=== PATIENT | male | born 1970 | race Caucasian/White ===

== ENCOUNTER 2017-02-17 23:02 | Emergency (ER) | payer OTHER, MEDICAID ==
[~2017-02-17] VITALS: Ht 172.7 cm; Wt 59.0 kg
[~2017-02-17 23:02] MED LIST: CITA20 PO; HYDR-3534 PO; ZYPR5TAB PO
[2017-02-17 23:04] VITALS: BP 136/94; PULSE 88; RESP 16; TEMP 97.5; O2SAT 98
[2017-02-17] MEDS ORDERED: ZYPR5TAB PO (23:22)
[2017-02-17] MEDS ORDERED: CITA10TA4 PO (23:22)
--- NOTE | 2017-02-17 23:43 | PD ---
HPI Chief Complaint: Psychiatric Symptoms Time Seen by Provider: 23:25 Travel History International Travel<30 days: No Contact w/Intl Traveler<30days: No Traveled to known affect area: No History of Present Illness HPI Supple 46 old man who presents to the emergency department complaining "I came in for detox". He also endorses active suicidal ideations. He has a history of IV heroin use, as well as regular alcohol use. He last used today. He states been having increased suicidal thoughts over the past 4 days. Plans on overdosing. His a history of PTSD with psychosis, reports being treated here before. Denies any other recent illness or injury. No somatic complaints at this time. History Past Medical History Narrative Medical PTSD, psychosis IVDU Chronic back pain Past Surgical History Surgical History: No Previous Surgery Social History Alcohol Use: Yes (DAILY) Tobacco Use: Yes (1/2PPD) Allergies-Medications (Allergen,Severity, Reaction): Coded Allergies: Penicillin (Verified Allergy, Severe, THROAT CLOSES, 02/17/17) Reported Meds & Prescriptions Reported Meds & Active Scripts Active Reported Citalopram (Citalopram Hydrobromide) 10 Mg Tab 10 Mg PO DAILY Zyprexa (Olanzapine) 5 Mg Tab 5 Mg PO DAILY Review of Systems Except as stated in HPI: all other systems reviewed are Neg Physical Exam Narrative GENERAL: 46 old man, saw him, no acute distress. SKIN: Focused skin assessment warm/dry. HEAD: Atraumatic. Normocephalic. CARDIOVASCULAR: Regular rate and rhythm. No murmur appreciated. RESPIRATORY: No accessory muscle use. Clear to auscultation. Breath sounds equal bilaterally. GASTROINTESTINAL: Abdomen soft, non-tender, nondistended. Hepatic and splenic margins not palpable. MUSCULOSKELETAL: No obvious deformities. No clubbing. No cyanosis. No edema. NEUROLOGICAL: Awake and alert. No obvious cranial nerve deficits. Motor grossly within normal limits. Normal speech. PSYCHIATRIC: Flat affect. He endorses SI. Data Data Last Documented VS Vital Signs Date Time Temp Pulse Resp B/P Pulse Ox O2 Delivery O2 Flow Rate FiO2 02/17/17 23:04 97.5 88 16 136/94 98 Room Air Orders Complete Blood Count With Diff (02/17/17 23:32) Comprehensive Metabolic Panel (02/17/17 23:32) Psych Screen (02/17/17 23:32) Drug Screen, Random Urine (02/17/17 23:32) MDM Medical Decision Making Medical Screen Exam Complete: Yes Emergency Medical Condition: Yes Differential Diagnosis Depression, substance induced mood disorder, SI, other Narrative Course Medical decision making INITIAL: 46 old man with IV drug use and alcohol use presents with suicidality and desire for detox. We'll be voluntary for psychiatric evaluation. He has no somatic complaints. Patient medically clear for psychiatric evaluation. Mental health screening discussed with the patient. Psychiatric screen ordered. Dale Osborn MD Feb 17, 2017 23:43
[2017-02-18 00:07] LABS: AUTOMATED NEUTROPHIL # 7.4 TH/MM3 (1.8-7.7); BASOPHIL # 0.1 TH/MM3 (0-0.2); EOSINOPHIL # 0.1 TH/MM3 (0-0.4); EOSINOPHIL % 0.6 % (0.0-4.0); LYMPH % 18.2 % (9.0-44.0); LYMPHOCYTE # 1.8 TH/MM3 (1.0-4.8); MEAN CELL VOLUME 92.2 FL (80.0-100.0); MEAN CORPUSCULAR HEMOGLOBIN 31.6 PG (27.0-34.0); MEAN CORPUSCULAR HGB CONC 34.3 % (32.0-36.0); MONO % 3.8 % (0.0-8.0); NEUT % 76.4 % (16.0-70.0); PLATELET COUNT 247 TH/MM3 (150-450); RED BLOOD COUNT 4.77 MIL/MM3 (4.50-5.90); WHITE BLOOD COUNT 9.6 TH/MM3 (4.0-11.0)
[2017-02-18 00:08] LABS: HEMO FLAGS AUTO DIFF
[2017-02-18 00:32] LABS: ALKALINE PHOSPHATASE 104 U/L (45-117); ALT (GPT) 102 U/L (12-78); ANION GAP 8 MEQ/L (5-15); AST (GOT) 64 U/L (15-37); BICARBONATE 30.1 MEQ/L (21.0-32.0); BLOOD UREA NITROGEN 8 MG/DL (7-18); CHLORIDE 102 MEQ/L (98-107); GLOMERULAR FILTRATION RATE 66 ML/MIN (>89); POTASSIUM 3.4 MEQ/L (3.5-5.1); SODIUM (NA) 140 MEQ/L (136-145); TOTAL BILIRUBIN ADULT 0.6 MG/DL (0.2-1.0)
[2017-02-18 00:43] LABS: PLATELET ESTIMATE SMEAR NORMAL (NORMAL); PLATELET MORPHOLOGY NORMAL (NORMAL); SCAN/DIFF AUTO DIFF CONFIRMED
[2017-02-18 07:20] VITALS: BP 121/71; PULSE 64; RESP 18; O2SAT 95
[2017-02-18] MEDS ORDERED: LIDOCAINE VISCOUS 2% SOLN 15 ML UDC PO ONE (07:45)
[2017-02-18] MEDS ORDERED: ALUMINUM/MAGNESIUM/SIMETH 30 ML CUP PO ONE (07:45)
[2017-02-18] MEDS ORDERED: DICYCLOMINE HCL 10 MG CAP PO ONE (07:45)
[2017-02-18] MEDS ORDERED: ONDANSETRON HCL 4 MG/2 ML VIAL IVP ONE (07:45)
[2017-02-18 07:57] LABS: AMPHETAMINE, URINE NEG (NEG); BARBITURATES, URINE NEG (NEG); COCAINE, URINE POS (NEG)
== END 2017-02-18 11:12 ==
LOC: NEPC 23:02
DX: F29 Unspecified psychosis not due to a substance or known physiological condition (principal); F17.210 Nicotine dependence, cigarettes, uncomplicated; F43.10 Post-traumatic stress disorder, unspecified; F10.20 Alcohol dependence, uncomplicated; F11.20 Opioid dependence, uncomplicated; Y90.9 Presence of alcohol in blood, level not specified; R45.851 Suicidal ideations
CPT/HCPCS: 80053; 80307; 85025; 96374; 99285; J2405

== ENCOUNTER 2017-04-21 15:33 | Emergency (ER) | payer OTHER ==
[~2017-04-21] VITALS: Ht 175.3 cm; Wt 66.0 kg
[~2017-04-21 15:33] MED LIST changes: +CITA10TA4 PO; -CITA20 PO; -HYDR-3534 PO
[2017-04-21 15:36] VITALS: BP 138/86; PULSE 62; RESP 17; TEMP 97.8; O2SAT 97
--- NOTE | 2017-04-21 16:19 | PD ---
HPI . Suicidal ideation and wanting detox Chief Complaint: Psychiatric Symptoms Time Seen by Provider: 16:19 Travel History International Travel<30 days: No Contact w/Intl Traveler<30days: No Traveled to known affect area: No History of Present Illness HPI 46-year-old male with long-standing history of IV drug use with heroin since age 27 here requesting detox. Patient tells me that he had previously been clean for approximately 2 weeks and then relapsed. He has been using heroin heavily for the past 3 days and tells me that he considered suicide by either shooting himself or jumping out into traffic. He says the only reason he did not move forward with his plan is because he doesn't think his would be able to handle his . He is here now requesting treatment for heroin addiction. He requests transfer to "[facility]." He also complains of a diffuse rash on his body for the past several days. He tells me that it does not itch or cause any discomfort, but he just noticed it. He thinks that it pops up in areas that he's been injecting IV drugs. He denies any fever or chills. He has no other complaints. PFSH Past Medical History Asthma: Yes Anxiety: Yes Depression: Yes Cancer: No Diabetes: No Diminished Hearing: No Headaches: No Hepatitis: Yes (HEP C) Musculoskeletal: Yes (CHRONIC BACK PAIN (PAIN MANAGEMENT)) Psychiatric: Yes (PTSD) Seizures: No Social History Alcohol Use: Yes (DAILY) Tobacco Use: Yes (1/2PPD) Substance Use: Yes (heroin, cocaine) Allergies-Medications (Allergen,Severity, Reaction): Coded Allergies: Penicillin (Verified Allergy, Severe, THROAT CLOSES, 04/21/17) Reported Meds & Prescriptions Reported Meds & Active Scripts Active Prednisone 50 Mg Tab 50 Mg PO DAILY Reported Citalopram (Citalopram Hydrobromide) 10 Mg Tab 10 Mg PO DAILY Zyprexa (Olanzapine) 5 Mg Tab 5 Mg PO DAILY Review of Systems General / Constitutional: No: Fever Eyes: No: Visual changes HENT: No: Headaches Cardiovascular: No: Chest Pain or Discomfort Respiratory: No: Shortness of Breath Gastrointestinal: No: Abdominal Pain Genitourinary: No: Dysuria Musculoskeletal: No: Pain Skin: Positive Rash Neurologic: No: Weakness Psychiatric: No: Depression Endocrine: No: Polydipsia Hematologic/Lymphatic: No: Easy Bruising Physical Exam Narrative GENERAL: AAO x 3, no acute distress, Well-nourished, well-developed patient. SKIN: Warm and dry. No visible bruising. The [place] macules scattered without any distinct distribution over the entire lower extremities primarily on the left leg, scattered lesions on the bilateral hands, slight excoriation on the hands. No visible widespread erythema, edema or cellulitis appearance. Skin temperature is consistent throughout upper and lower extremities. No ecchymosis. No blisters or pustules. NO fluid collection. HEAD: Normocephalic and atraumatic. EYES: No scleral icterus. No injection or drainage. EOM intact, PERRLA ENT: No nasal drainage noted. Mucous membranes pink. Airway patent. NECK: Supple, trachea midline. No JVD. CARDIOVASCULAR: Regular rate and rhythm without murmurs, gallops, or rubs. RESPIRATORY: Breath sounds equal bilaterally. No accessory muscle use. No rhonchi or rales. GASTROINTESTINAL: Abdomen soft, non-tender, nondistended. EXTREMITIES: No cyanosis or edema. BACK: Nontender without obvious deformity. No CVA tenderness. NEURO: CN II-12 intact, primary care pediatrician stenght normal b/l, UE and LE 5/5, no focal deficits PSYCH: AAO x 3, normal affect. Data Data Last Documented VS Vital Signs Date Time Temp Pulse Resp B/P Pulse Ox O2 Delivery O2 Flow Rate FiO2 04/21/17 15:36 97.8 62 17 138/86 97 Room Air Orders Complete Blood Count With Diff (04/21/17 16:24) Comprehensive Metabolic Panel (04/21/17 16:24) Psych Screen (04/21/17 16:24) Drug Screen, Random Urine (04/21/17 16:24) Alcohol (Ethanol) (04/21/17 16:24) Salicylates (Aspirin) (04/21/17 16:24) Tylenol (Acetaminophen) (04/21/17 16:24) Labs Laboratory Tests Test 04/21/17 16:50 White Blood Count 8.7 TH/MM3 Red Blood Count 4.60 MIL/MM3 Hemoglobin 14.3 GM/DL Hematocrit 43.0 % Mean Corpuscular Volume 93.6 FL Mean Corpuscular Hemoglobin 31.1 PG Mean Corpuscular Hemoglobin 33.3 % Concent Red Cell Distribution Width 13.7 % Platelet Count 233 TH/MM3 Mean Platelet Volume 8.1 FL Neutrophils (%) (Auto) 66.6 % Lymphocytes (%) (Auto) 25.5 % Monocytes (%) (Auto) 5.7 % Eosinophils (%) (Auto) 1.1 % Basophils (%) (Auto) 1.1 % Neutrophils # (Auto) 5.8 TH/MM3 Lymphocytes # (Auto) 2.2 TH/MM3 Monocytes # (Auto) 0.5 TH/MM3 Eosinophils # (Auto) 0.1 TH/MM3 Basophils # (Auto) 0.1 TH/MM3 CBC Comment DIFF FINAL Differential Comment Sodium Level 136 MEQ/L Potassium Level 3.8 MEQ/L Chloride Level 102 MEQ/L Carbon Dioxide Level 25.8 MEQ/L Anion Gap 8 MEQ/L Blood Urea Nitrogen 8 MG/DL Creatinine 0.94 MG/DL Estimat Glomerular Filtration 87 ML/MIN Rate Random Glucose 70 MG/DL Calcium Level 9.0 MG/DL Total Bilirubin 0.6 MG/DL Aspartate Amino Transf 58 U/L (AST/SGOT) Alanine Aminotransferase 90 U/L (ALT/SGPT) Alkaline Phosphatase 101 U/L Total Protein 7.3 GM/DL Albumin 3.8 GM/DL Salicylates Level 3.8 MG/DL Acetaminophen Level LESS THAN 2.0 MCG/ML Ethyl Alcohol Level LESS THAN 3 MG/DL MDM Medical Decision Making Medical Screen Exam Complete: Yes Emergency Medical Condition: Yes Medical Record Reviewed: Yes Differential Diagnosis Heroin addiction, polysubstance abuse, depression, suicidal ideation Narrative Course This is a 46-year-old male presenting with heroin addiction requesting detox as well as suicidal ideation. He also has a slight macular rash scattered in various areas in his body. This may be related to him injecting drugs in this area, however it the distribution is a little more widespread than expected. There is no abscess formation or evidence of cellulitis. Labs have been ordered. If they're within normal limits, patient will be cleared for psych screen. This rash does not appear to be any type of widespread infection. It does not appear to be cellulitis. This looks like a contact dermatitis. I will provide him with some prednisone. Labs reviewed patient has slight elevation of LFTs. Otherwise unremarkable. He has been cleared for psych screen. Diagnosis Primary Impression: Suicidal ideation Additional Impressions: Heroin dependence Contact dermatitis Qualified Code: L25.9 - Contact dermatitis, unspecified contact dermatitis type, unspecified trigger Med/Other Pt SpecificInfo: Prescription(s) given Scripts Prednisone 50 Mg Tab50 Mg PO DAILY #5 TAB Prov:Jina De Los Santos MD 04/21/17 Condition: Stable Della Stevens Apr 21, 2017 16:19
[2017-04-21 17:21] LABS: AUTOMATED NEUTROPHIL # 5.8 TH/MM3 (1.8-7.7); BASOPHIL # 0.1 TH/MM3 (0-0.2); BASOPHIL % 1.1 % (0.0-2.0); EOSINOPHIL # 0.1 TH/MM3 (0-0.4); EOSINOPHIL % 1.1 % (0.0-4.0); HEMO FLAGS DIFF FINAL; LYMPH % 25.5 % (9.0-44.0); LYMPHOCYTE # 2.2 TH/MM3 (1.0-4.8); MEAN CELL VOLUME 93.6 FL (80.0-100.0); MEAN CORPUSCULAR HEMOGLOBIN 31.1 PG (27.0-34.0); MEAN CORPUSCULAR HGB CONC 33.3 % (32.0-36.0); MONO % 5.7 % (0.0-8.0); NEUT % 66.6 % (16.0-70.0); PLATELET COUNT 233 TH/MM3 (150-450); RED CELL DISTRIBUTION WIDTH 13.7 % (11.6-17.2); WHITE BLOOD COUNT 8.7 TH/MM3 (4.0-11.0)
[2017-04-21 17:48] LABS: ALT (GPT) 90 U/L (12-78)
[2017-04-21 17:50] LABS: ALKALINE PHOSPHATASE 101 U/L (45-117); TOTAL BILIRUBIN ADULT 0.6 MG/DL (0.2-1.0)
[2017-04-21 17:52] LABS: ANION GAP 8 MEQ/L (5-15); AST (GOT) 58 U/L (15-37); BICARBONATE 25.8 MEQ/L (21.0-32.0); BLOOD UREA NITROGEN 8 MG/DL (7-18); CHLORIDE 102 MEQ/L (98-107); GLOMERULAR FILTRATION RATE 87 ML/MIN (>89); SODIUM (NA) 136 MEQ/L (136-145)
[2017-04-21 17:55] LABS: ACETAMINOPHEN LESS THAN 2.0 MCG/ML (10.0-30.0); POTASSIUM 3.8 MEQ/L (3.5-5.1)
[2017-04-21] MEDS ORDERED: PRED50 PO (18:18)
[2017-04-21 20:07] VITALS: BP 136/65; PULSE 68; RESP 16; TEMP 98.9; O2SAT 98
[2017-04-21 23:10] VITALS: BP 141/63; PULSE 71; RESP 16; O2SAT 97
[2017-04-21 23:37] LABS: AMPHETAMINE, URINE NEG (NEG); BARBITURATES, URINE NEG (NEG); COCAINE, URINE POS (NEG)
[2017-04-22 08:50] VITALS: BP 118/82; PULSE 81; RESP 16; O2SAT 100
[2017-04-22 11:46] VITALS: BP 110/56; PULSE 81; RESP 20; TEMP 98.6; O2SAT 99
[2017-04-22 14:06] VITALS: BP 110/56; TEMP 98.7
== END 2017-04-22 13:14 ==
LOC: NEPD 15:33 → NEPJ 04-22 13:14
DX: R45.851 Suicidal ideations (principal); F11.20 Opioid dependence, uncomplicated; L25.9 Unspecified contact dermatitis, unspecified cause; B19.20 Unspecified viral hepatitis C without hepatic coma; F43.10 Post-traumatic stress disorder, unspecified; Z79.899 Other long term (current) drug therapy
CPT/HCPCS: 80053; 80307; 85025; 99284

== ENCOUNTER 2017-10-03 20:58 | Emergency (ER) | payer OTHER, MEDICAID ==
[~2017-10-03 20:58] MED LIST changes: +PRED50 PO
[2017-10-03 21:01] VITALS: BP 142/96; PULSE 120; RESP 16; TEMP 97; O2SAT 97
[2017-10-03] MEDS ORDERED: SODIUM CHLOR 0.9% 1000 ML INJ 1,000 ML IV ONE (21:45)
--- NOTE | 2017-10-03 21:46 | PD ---
HPI Chief Complaint: Psychiatric Symptoms Time Seen by Provider: 21:30 Travel History International Travel<30 days: No Contact w/Intl Traveler<30days: No Traveled to known affect area: No History of Present Illness HPI 47-year-old male with history of bipolar disorder, depression, polysubstance abuse, here for evaluation of suicidal ideation. The patient admits to snorting cocaine today, and every day for the last week. He last used heroin about 4 days ago. He is feeling increasingly depressed and is thinking about committing suicide. He did not do anything today to harm himself. No toxic ingestions. No fevers or chills. No physical complaints. PFSH Past Medical History Asthma: Yes Anxiety: Yes Depression: Yes Cancer: No Diabetes: No Diminished Hearing: No Headaches: No Hepatitis: Yes (HEP C) Musculoskeletal: Yes (CHRONIC BACK PAIN (PAIN MANAGEMENT)) Psychiatric: Yes (PTSD) Immunizations Current: No Seizures: Yes Social History Alcohol Use: Yes (DAILY) Tobacco Use: Yes (1 PPD) Substance Use: Yes (HEROIN, COCAINE) Allergies-Medications (Allergen,Severity, Reaction): Coded Allergies: penicillin G (Unverified Allergy, Severe, THROAT CLOSES, 10/03/17) Reported Meds & Prescriptions Reported Meds & Active Scripts Active Reported Citalopram (Citalopram Hydrobromide) 10 Mg Tab 10 Mg PO DAILY Zyprexa (Olanzapine) 5 Mg Tab 5 Mg PO DAILY Review of Systems Except as stated in HPI: all other systems reviewed are Neg Physical Exam Narrative GENERAL: Well-developed, well-nourished, awake, alert, pleasant, no apparent distress. SKIN: Focused skin assessment warm/dry. No rash. HEAD: Atraumatic. Normocephalic. EYES: Pupils equal and round. No scleral icterus. No injection or drainage. ENT: Mucous membranes pink and moist. NECK: Trachea midline. No JVD. CARDIOVASCULAR: Tachycardic, rate 110, regular. No murmurs. RESPIRATORY: No accessory muscle use. Clear to auscultation. Breath sounds equal bilaterally. GASTROINTESTINAL: Abdomen soft, non-tender, nondistended. MUSCULOSKELETAL: No obvious deformities. No clubbing. No cyanosis. No edema. NEUROLOGICAL: Awake and alert. No obvious cranial nerve deficits. Motor grossly within normal limits. Normal speech. PSYCHIATRIC: Appropriate mood and affect; insight and judgment normal. Data Data Last Documented VS Vital Signs Date Time Temp Pulse Resp B/P (MAP) Pulse Ox O2 Delivery O2 Flow Rate FiO2 10/03/17 22:39 98.0 76 16 116/80 (92) 100 Room Air Orders Orders Complete Blood Count With Diff (10/03/17 21:31) Comprehensive Metabolic Panel (10/03/17 21:31) Psych Screen (10/03/17 21:31) Drug Screen, Random Urine (10/03/17 21:31) Alcohol (Ethanol) (10/03/17 21:31) Salicylates (Aspirin) (10/03/17 21:31) Tylenol (Acetaminophen) (10/03/17 21:31) Sodium Chlor 0.9% 1000 Ml Inj (Ns 1000 M (10/03/17 21:45) Creatine Kinase (Cpk) (10/03/17 21:45) Potassium Chloride (Kcl) (10/03/17 23:30) Labs Laboratory Tests Test 10/03/17 21:25 White Blood Count 13.0 TH/MM3 Red Blood Count 4.55 MIL/MM3 Hemoglobin 14.7 GM/DL Hematocrit 43.0 % Mean Corpuscular Volume 94.5 FL Mean Corpuscular Hemoglobin 32.3 PG Mean Corpuscular Hemoglobin Concent 34.2 % Red Cell Distribution Width 13.2 % Platelet Count 280 TH/MM3 Mean Platelet Volume 8.9 FL Neutrophils (%) (Auto) 72.1 % Lymphocytes (%) (Auto) 21.7 % Monocytes (%) (Auto) 5.3 % Eosinophils (%) (Auto) 0.3 % Basophils (%) (Auto) 0.6 % Neutrophils # (Auto) 9.4 TH/MM3 Lymphocytes # (Auto) 2.8 TH/MM3 Monocytes # (Auto) 0.7 TH/MM3 Eosinophils # (Auto) 0.0 TH/MM3 Basophils # (Auto) 0.1 TH/MM3 CBC Comment DIFF FINAL Differential Comment Blood Urea Nitrogen 13 MG/DL Creatinine 1.13 MG/DL Random Glucose 142 MG/DL Total Protein 7.9 GM/DL Albumin 4.1 GM/DL Calcium Level 9.5 MG/DL Alkaline Phosphatase 77 U/L Aspartate Amino Transf (AST/SGOT) 21 U/L Alanine Aminotransferase (ALT/SGPT) 32 U/L Total Bilirubin 0.6 MG/DL Sodium Level 138 MEQ/L Potassium Level 3.2 MEQ/L Chloride Level 102 MEQ/L Carbon Dioxide Level 26.3 MEQ/L Anion Gap 10 MEQ/L Estimat Glomerular Filtration Rate 70 ML/MIN Total Creatine Kinase 114 U/L Salicylates Level 3.4 MG/DL Urine Opiates Screen NEG Acetaminophen Level LESS THAN 2.0 MCG/ML Urine Barbiturates Screen NEG Urine Amphetamines Screen NEG Urine Benzodiazepines Screen NEG Urine Cocaine Screen POS Urine Cannabinoids Screen NEG Ethyl Alcohol Level LESS THAN 3 MG/DL MDM Medical Decision Making Medical Screen Exam Complete: Yes Emergency Medical Condition: Yes Medical Record Reviewed: Yes Differential Diagnosis Polysubstance abuse, suicidal ideation, depression Narrative Course Vital signs show heart rate 76, blood pressure 116/80, pulse ox 100% on room air , oral temp of 98F. CBC: WBC 13, hemoglobin 14.7, hematocrit 43, platelets 280. CMP is remarkable for random glucose 142, potassium 3.2 which was replaced orally, otherwise unremarkable. Total CK is 114. Urine drug screen is positive for cocaine. Tylenol, alcohol, and salicylate levels are negative. Patient is medically cleared for psychiatric evaluation and disposition by them. 11:20 PM: Patient requested to be transferred to the [facility] for dual treatment for polysubstance abuse and depression/suicidal. My nurse contacted them and they have accepted him to be transported there in the morning. Diagnosis Primary Impression: Bipolar disorder, now depressed Qualified Codes: F31.30 - Bipolar disorder, current episode depressed, mild or moderate severity, unspecified Additional Impressions: Polysubstance abuse Hypokalemia Disposition: 70 TRANSFER TO OTHER FACILITY Condition: Stable Nolan Ontiveros MD Oct 03, 2017 21:46
[2017-10-03 22:14] LABS: AUTOMATED NEUTROPHIL # 9.4 TH/MM3 (1.8-7.7); BASOPHIL # 0.1 TH/MM3 (0-0.2); BASOPHIL % 0.6 % (0.0-2.0); EOSINOPHIL % 0.3 % (0.0-4.0); HEMO FLAGS DIFF FINAL; LYMPH % 21.7 % (9.0-44.0); LYMPHOCYTE # 2.8 TH/MM3 (1.0-4.8); MEAN CELL VOLUME 94.5 FL (80.0-100.0); MEAN CORPUSCULAR HEMOGLOBIN 32.3 PG (27.0-34.0); MEAN CORPUSCULAR HGB CONC 34.2 % (32.0-36.0); MONO % 5.3 % (0.0-8.0); NEUT % 72.1 % (16.0-70.0); PLATELET COUNT 280 TH/MM3 (150-450); RED BLOOD COUNT 4.55 MIL/MM3 (4.50-5.90); RED CELL DISTRIBUTION WIDTH 13.2 % (11.6-17.2)
[2017-10-03 22:16] LABS: ANION GAP 10 MEQ/L (5-15); AST (GOT) 21 U/L (15-37); BICARBONATE 26.3 MEQ/L (21.0-32.0); BLOOD UREA NITROGEN 13 MG/DL (7-18); CHLORIDE 102 MEQ/L (98-107); GLOMERULAR FILTRATION RATE 70 ML/MIN (>89); POTASSIUM 3.2 MEQ/L (3.5-5.1); SODIUM (NA) 138 MEQ/L (136-145)
[2017-10-03 22:17] LABS: ALT (GPT) 32 U/L (12-78)
[2017-10-03 22:19] LABS: ALCOHOL LESS THAN 3 MG/DL (0-5)
[2017-10-03 22:20] LABS: ALKALINE PHOSPHATASE 77 U/L (45-117); TOTAL BILIRUBIN ADULT 0.6 MG/DL (0.2-1.0)
[2017-10-03 22:27] LABS: ACETAMINOPHEN LESS THAN 2.0 MCG/ML (10.0-30.0)
[2017-10-03 22:39] VITALS: BP 116/80; PULSE 76; RESP 16; TEMP 98; O2SAT 100
[2017-10-03] MEDS ORDERED: POTASSIUM CHLORIDE 20 MEQ CONTROLLED RELEASE TAB PO ONE (23:30)
== END 2017-10-04 07:37 | disposition short-term general hospital (02) ==
LOC: NEPD 20:58
DX: F31.9 Bipolar disorder, unspecified (principal); F19.10 Other psychoactive substance abuse, uncomplicated; E87.6 Hypokalemia; R00.0 Tachycardia, unspecified; F17.200 Nicotine dependence, unspecified, uncomplicated; J45.909 Unspecified asthma, uncomplicated; F43.10 Post-traumatic stress disorder, unspecified; R56.9 Unspecified convulsions; Z86.19 Personal history of other infectious and parasitic diseases
CPT/HCPCS: 80053; 80307; 82550; 85025; 96360; 99285; J7030

== ENCOUNTER 2017-11-12 13:55 | Inpatient (IN) | payer OTHER, MEDICAID, MEDICARE ==
[~2017-11-12] VITALS: Ht 172.7 cm; Wt 61.0 kg
[~2017-11-12 13:55] MED LIST changes: -PRED50 PO
[2017-11-12 13:56] VITALS: BP 115/79; PULSE 113; RESP 20; TEMP 98.4; O2SAT 95
[2017-11-12] MEDS ORDERED: TRAZ100T10 PO (14:29)
[2017-11-12] MEDS ORDERED: CITA40TA4 PO (14:29)
[2017-11-12] MEDS ORDERED: GABA600T PO (14:29)
--- NOTE | 2017-11-12 14:36 | PD ---
HPI Chief Complaint: Suicide Ideation/Attempt Time Seen by Provider: 14:11 Travel History International Travel<30 days: No Contact w/Intl Traveler<30days: No Traveled to known affect area: No History of Present Illness HPI 47-year-old male with history of polysubstance abuse resents to the emergency department for voluntary psychiatric evaluation for suicidal ideation. Patient has a history of attempted suicide in the past. Patient states he has a plan of pain himself. He states he has used cocaine in the recent past. He has history of chronic liver disease, currently not being treated. The patient states she has had a couple of days of dysuria but denies nausea, vomiting, or significant abdominal pain. He denies penile discharge. He denies testicular pain. He is allergic to penicillin. PFSH Past Medical History Asthma: Yes Bipolar Disorder: Yes Anxiety: Yes Depression: Yes Cancer: No Diabetes: No Diminished Hearing: No Headaches: No Hepatitis: Yes (HEP C) Musculoskeletal: Yes (CHRONIC BACK PAIN (PAIN MANAGEMENT)) Psychiatric: Yes (PTSD) Immunizations Current: No Seizures: Yes Social History Alcohol Use: Yes (6-12 beers daily) Tobacco Use: Yes (1 PPD) Substance Use: Yes (HEROIN AND COCAINE BY INJECTION) Allergies-Medications (Allergen,Severity, Reaction): Coded Allergies: penicillin G (Unverified Allergy, Severe, THROAT CLOSES, 11/12/17) Reported Meds & Prescriptions Reported Meds & Active Scripts Active Reported Trazodone (Trazodone HCl) 100 Mg Tablet 100 Mg PO HS Gabapentin 600 Mg Tab 600 Mg PO TID Citalopram (Citalopram Hydrobromide) 40 Mg Tab 40 Mg PO DAILY Zyprexa (Olanzapine) 5 Mg Tab 5 Mg PO DAILY Review of Systems Except as stated in HPI: all other systems reviewed are Neg General / Constitutional: No: Fever Eyes: No: Visual changes HENT: No: Headaches Cardiovascular: No: Chest Pain or Discomfort Respiratory: No: Shortness of Breath Gastrointestinal: No: Abdominal Pain Genitourinary: Positive: Dysuria, No: Urgency, Frequency, Nocturia, Hematuria Musculoskeletal: No: Pain Skin: No Rash Neurologic: No: Weakness Psychiatric: Positive: Depression, Suicidal Ideations, Substance Abuse, No: Anxiety, Disorder of Thought, Mood Disorder, Homicidal Ideation Endocrine: No: Polydipsia Hematologic/Lymphatic: No: Easy Bruising Physical Exam Narrative GENERAL: Patient appears in no obvious distress. SKIN: Warm and dry. Normal color. Normal turgor. No current signs of infection. HEAD: Atraumatic. Normocephalic. EYES: Pupils equal and round. No scleral icterus. No injection or drainage. ENT: No nasal bleeding or discharge. Mucous membranes pink and moist. Pharynx is clear. Airway is patent. NECK: Trachea midline. Supple and nontender. CARDIOVASCULAR: Regular rate and rhythm. RESPIRATORY: No accessory muscle use. Clear to auscultation. Breath sounds equal bilaterally. GASTROINTESTINAL: Abdomen soft, non-tender, nondistended. Hepatic and splenic margins not palpable. MUSCULOSKELETAL: Extremities without clubbing, cyanosis, or edema. No obvious deformities. NEUROLOGICAL: Awake and alert. No obvious cranial nerve deficits. Motor grossly within normal limits. Five out of 5 muscle strength in the arms and legs. Normal speech. PSYCHIATRIC: Appropriate mood and affect; insight and judgment normal. Data Data Last Documented VS Vital Signs Date Time Temp Pulse Resp B/P (MAP) Pulse Ox O2 Delivery O2 Flow Rate FiO2 11/12/17 13:56 98.4 113 20 115/79 (91) 95 Room Air Orders Orders Complete Blood Count With Diff (11/12/17 14:10) Comprehensive Metabolic Panel (11/12/17 14:10) Psych Screen (11/12/17 14:10) Drug Screen, Random Urine (11/12/17 14:10) Urinalysis - C+S If Indicated (11/12/17 14:58) Diet Regular Basic (11/12/17 Dinner) Labs Laboratory Tests Test 11/12/17 14:32 11/12/17 14:38 Urine Opiates Screen NEG Urine Barbiturates Screen NEG Urine Amphetamines Screen NEG Urine Benzodiazepines Screen NEG Urine Cocaine Screen POS Urine Cannabinoids Screen NEG White Blood Count 12.7 TH/MM3 Red Blood Count 4.49 MIL/MM3 Hemoglobin 14.9 GM/DL Hematocrit 42.9 % Mean Corpuscular Volume 95.4 FL Mean Corpuscular Hemoglobin 33.3 PG Mean Corpuscular Hemoglobin Concent 34.9 % Red Cell Distribution Width 14.0 % Platelet Count 256 TH/MM3 Mean Platelet Volume 8.7 FL Neutrophils (%) (Auto) 70.7 % Lymphocytes (%) (Auto) 21.4 % Monocytes (%) (Auto) 6.9 % Eosinophils (%) (Auto) 0.5 % Basophils (%) (Auto) 0.5 % Neutrophils # (Auto) 9.0 TH/MM3 Lymphocytes # (Auto) 2.7 TH/MM3 Monocytes # (Auto) 0.9 TH/MM3 Eosinophils # (Auto) 0.1 TH/MM3 Basophils # (Auto) 0.1 TH/MM3 CBC Comment DIFF FINAL Differential Comment Blood Urea Nitrogen 10 MG/DL Creatinine 0.85 MG/DL Random Glucose 76 MG/DL Total Protein 8.0 GM/DL Albumin 4.4 GM/DL Calcium Level 9.7 MG/DL Alkaline Phosphatase 100 U/L Aspartate Amino Transf (AST/SGOT) 51 U/L Alanine Aminotransferase (ALT/SGPT) 59 U/L Total Bilirubin 0.7 MG/DL Sodium Level 142 MEQ/L Potassium Level 3.4 MEQ/L Chloride Level 105 MEQ/L Carbon Dioxide Level 26.6 MEQ/L Anion Gap 10 MEQ/L Estimat Glomerular Filtration Rate 97 ML/MIN [facility] [place] Medical Decision Making Medical Screen Exam Complete: Yes Emergency Medical Condition: Yes Medical Record Reviewed: Yes Differential Diagnosis Possible dysuria. Depression. Suicidal ideation. History of polysubstance abuse. Narrative Course Labs ordered for psychiatric protocol. Patient is medically cleared for psychiatric evaluation. Diagnosis Primary Impression: Suicidal ideation Condition: Stable Hayder Cole Nov 12, 2017 14:36
[2017-11-12 15:27] LABS: BASOPHIL # 0.1 TH/MM3 (0-0.2); BASOPHIL % 0.5 % (0.0-2.0); EOSINOPHIL # 0.1 TH/MM3 (0-0.4); EOSINOPHIL % 0.5 % (0.0-4.0); HEMATOCRIT 42.9 % (39.0-51.0); HEMOGLOBIN 14.9 GM/DL (13.0-17.0); LYMPH % 21.4 % (9.0-44.0); LYMPHOCYTE # 2.7 TH/MM3 (1.0-4.8); MEAN CELL VOLUME 95.4 FL (80.0-100.0); MEAN CORPUSCULAR HEMOGLOBIN 33.3 PG (27.0-34.0); MEAN CORPUSCULAR HGB CONC 34.9 % (32.0-36.0); MEAN PLATELET VOLUME 8.7 FL (7.0-11.0); MONO % 6.9 % (0.0-8.0); MONOCYTE # 0.9 TH/MM3 (0-0.9); NEUT % 70.7 % (16.0-70.0); PLATELET COUNT 256 TH/MM3 (150-450); RED BLOOD COUNT 4.49 MIL/MM3 (4.50-5.90); WHITE BLOOD COUNT 12.7 TH/MM3 (4.0-11.0)
[2017-11-12 15:41] LABS: ALBUMIN 4.4 GM/DL (3.4-5.0); AST (GOT) 51 U/L (15-37); BICARBONATE 26.6 MEQ/L (21.0-32.0); BLOOD UREA NITROGEN 10 MG/DL (7-18); CALCIUM 9.7 MG/DL (8.5-10.1); CHLORIDE 105 MEQ/L (98-107); CREATININE 0.85 MG/DL (0.60-1.30); GLOMERULAR FILTRATION RATE 97 ML/MIN (>89); GLUCOSE,RANDOM 76 MG/DL (74-106); SODIUM (NA) 142 MEQ/L (136-145)
[2017-11-12 15:45] LABS: ALKALINE PHOSPHATASE 100 U/L (45-117); ALT (GPT) 59 U/L (12-78); TOTAL BILIRUBIN ADULT 0.7 MG/DL (0.2-1.0)
[2017-11-12 21:34] LABS: BILIRUBIN, URINE NEG (NEG); BLOOD, URINE NEG (NEG); GLUCOSE,URINE NEG (NEG); KETONE, URINE NEG (NEG); NITRITE,URINE NEG (NEG); PH, URINE 6.5 (5.0-8.5); URINE COLOR LIGHT-YELLOW (YELLW/STRAW); URINE LEUKOCYTE ESTERASE NEG (NEG)
[2017-11-12 23:41] VITALS: BP_SYST 72; BP_SYST 92; BP_DIAS 50; PULSE 64; RESP 17; TEMP 98.9; O2SAT 96
[2017-11-13 06:44] VITALS: BP 114/75; PULSE 88; RESP 18; TEMP 98.3; O2SAT 97
[2017-11-13] MEDS ORDERED: FLUMAZENIL 0.5 MG/5 ML VIAL IV PUSH PRN (08:45)
[2017-11-13] MEDS ORDERED: LORazepam 2 MG/ML VIAL IV PUSH PRN ×4 (08:45)
[2017-11-13] MEDS ORDERED: LORazepam 2 MG TAB PO PRN (08:45)
[2017-11-13 09:17] VITALS: BP 113/69; PULSE 89; RESP 17; O2SAT 96
--- NOTE | 2017-11-13 09:24 | MB ---
cc: UZIEL PIMENTEL DATE OF CONSULTATION: 11/13/2017 PHYSICIAN REQUESTING CONSULTATION Emergency department. REASON FOR CONSULTATION Voluntary psych eval. HISTORY OF PRESENT ILLNESS Mr. Posey is a 47-year-old male with a reported history of bipolar disorder, PTSD and substance use issues, who presented to the emergency department voluntarily complaining of suicidal ideation. Reviewing the electronic medical record, I note that the patient was admitted here most recently under my care in May of 2015, and his discharge diagnosis at that time was bipolar disorder type 2 and polysubstance dependence. The patient seen and examined. Chart reviewed. Case discussed with nurse in the J pod. On my examination today, the patient reports that he has been off of his psychotropic medications for about a month. He says that he was hospitalized at [facility] a month ago and was given prescriptions but could not have them filled. He says that his threw him out a few days ago and so he is presently homeless. In the setting of this stressor he has been feeling increasingly depressed and having suicidal ideation to hang himself. He denies any homicidal ideation. He endorses vague auditory hallucinations, although he cannot describe these in any detail, as well as paranoia. The remainder of the psychiatric ROS is negative. The patient verbalizes no physical complaints at this time. PAST PSYCHIATRIC HISTORY The patient reports a history of bipolar disorder and PTSD related to being in a house when his mother completed suicide. He also has history of substance use issues. He does not have an outpatient psychiatrist. He was hospitalized most recently at [facility] a month ago. He endorses multiple previous suicide attempts including by cutting and by overdose. Last suicide attempt was a few months ago. FAMILY HISTORY The patient reports a history of bipolar disorder in mother and maternal grandmother. Mother completed suicide. CHEMICAL DEPENDENCY HISTORY The patient reports that he has been drinking at least a case of beer a day. He does endorse a history of DTs and withdrawal seizures, although the patient also does have a history of seizure disorder, per report. He also has been using cocaine. Last use of substances was yesterday morning. SOCIAL HISTORY The patient is presently homeless. He has a 9th grade education. He is on disability. He is from his . He has four children and has some contact with them. He denies any active legal issues. Denies any history of violent crime. Denies any access to guns or firearms. He is a Nondenominational. PAST MEDICAL HISTORY Includes a history of seizure disorder. MEDICATIONS The patient reports that he is supposed to be takin. Gabapentin 800 mg three times daily for his seizure disorder as well as 2. Zyprexa 10 mg at bedtime and 3. Celexa 20 mg daily. ALLERGIES PENICILLIN G. REVIEW OF SYSTEMS Except as noted in the history of present illness, this is negative. PHYSICAL EXAMINATION Vital signs: Temperature 98.3, pulse 88, respirations 18, blood pressure 114/75, pulse oximetry 97% on room air. Physical examination completed by the ED provider. On my examination today, the patient appears to be in no acute physical distress. No motor abnormalities noted. In particular no signs of withdrawal noted. LABORATORY Reviewed: CBC is significant for mild leukocytosis with white blood cell count of 12.7. CMP is significant for mildly elevated AST of 51 and mild hypokalemia at 3.4. Urine toxicology is positive for cocaine, alcohol level not completed. Urinalysis bland. MENTAL STATUS EXAMINATION The patient is in hospital attire. He is somewhat disheveled but maintaining basic hygiene. He is awake and alert and oriented x4. No evidence of delirium. No motor abnormalities noted. Numerous tattoos noted. Speech is within normal limits for rate, tone and volume. Language and fund of knowledge average. Focus and concentration intact. Memory grossly intact on clinical exam. Mood depressed and affect restricted. Thought process linear. No loosening of associations. The patient reports feeling somewhat paranoid. No other delusional material elicited. Reports auditory hallucinations but does not appear internally stimulated. No other hallucinatory material reported. Endorses suicidal ideation with plan to hang himself but does not report any urge to hurt himself while he is in the emergency room. No homicidal ideation. Insight and judgment are fair at best. ASSESSMENT/PLAN 1. Bipolar disorder type 2, depressed, F31.81. 2. Polysubstance dependence, F19.20. This is a 47-year-old male presenting voluntarily for psychiatric evaluation. On my examination today, the patient reports vague auditory hallucinations and suicidal ideation with plan to hang himself in the setting of medication nonadherence. Acute stressor appears to have been being kicked out of the home by his a few days ago. This certainly may be a component of malingering for senior care. Given the patient's reported symptoms, I recommend that the patient be admitted to the inpatient psychiatric unit. As our inpatient unit is presently full, I will instruct the nursing staff to retain the patient in the J pod and refer him for inpatient psychiatric services elsewhere. I have discussed the plan with the patient and he is in agreement. I will place the patient on CIWA scale with Ativan for the management of any withdrawal. I will also institute seizure precautions as the patient reportedly has a history of seizure disorder. I will defer any further medication initiation to the emergency department provider. Thank you very much for this consultation. Uziel TORRES /8:24 AM /8:49 AM GUILLERMO
[2017-11-13 12:03] VITALS: BP 113/69; PULSE 89; RESP 17; O2SAT 96
[2017-11-13] MEDS: LORazepam 1 MG TAB PO PRN ×2 (12:11→16:50)
[2017-11-13] MEDS ORDERED: BENZTROPINE MESYLATE 1 MG TAB PO PRN (15:30)
[2017-11-13] MEDS ORDERED: BENZTROPINE MESYLATE 2 MG/2 ML VIAL IM PRN (15:30)
[2017-11-13] MEDS ORDERED: ALUMINUM/MAGNESIUM/SIMETH 30 ML CUP PO PRN (15:30)
[2017-11-13] MEDS ORDERED: NICOTINE 21 MG/24 HR PATCH T-DERMAL PRN (15:30)
[2017-11-13] MEDS ORDERED: MAGNESIUM HYDROXIDE SUSP 30 ML CUP PO PRN (15:30)
[2017-11-13] MEDS ORDERED: hydrOXYzine HCL 50 MG TAB PO PRN (15:30)
--- NOTE | 2017-11-13 15:34 | HHI.PR ---
Addendum to Inpatient Note Addendum Reason: Corrected Documentation Additional Information Patient reported his prescribed dose of gabapentin as 300mg PO TID, not 800mg PO TID. Uziel Palacios MD Nov 13, 2017 15:34
[2017-11-13] MEDS ORDERED: REMOVE OLD NICODERM (NICOTINE) PATCH T-DERMAL PRN (16:00)
[2017-11-13 16:44] VITALS: BP 133/79; PULSE 90; RESP 17; O2SAT 96
[2017-11-13] MEDS ORDERED: POTASSIUM CHLORIDE 20 MEQ CONTROLLED RELEASE TAB PO ONE (17:00)
[2017-11-13] MEDS: GABAPENTIN 300 MG CAP PO SCH (17:39)
[2017-11-13 17:46] VITALS: BP 121/68; PULSE 84; RESP 18; TEMP 98.6; O2SAT 97
--- NOTE | 2017-11-13 19:29 | EKG ---
Date Performed: 11/13/2017 Time Performed: 18:33:06 PTAGE: 47 years EKG: Sinus rhythm NORMAL ECG Compared to prior electrocardiogram, rate has decreased and Anteroseptal myocardial infar ction no longer present. PREVIOUS TRACING : 05/22/2015 15.36 DOCTOR: Darin Lam Interpretating Date/Time 11/13/2017 19:28:49
[2017-11-13] MEDS ORDERED: traZODone HCL 50 MG TAB PO PRN (21:00)
[2017-11-13] MEDS: OLANZapine 10 MG TAB PO SCH (21:16)
[2017-11-14 00:27] VITALS: BP 99/61; PULSE 74; RESP 16; O2SAT 97
[2017-11-14 03:45] VITALS: BP 113/71; PULSE 68; RESP 16; O2SAT 96
[2017-11-14] MEDS: LORazepam 1 MG TAB PO PRN ×3 (03:47→20:54)
[2017-11-14 06:01] VITALS: BP 136/73; PULSE 72; RESP 17; TEMP 98; O2SAT 98
[2017-11-14 09:15] LABS: AUTOMATED NEUTROPHIL # 4.2 TH/MM3 (1.8-7.7); BASOPHIL # 0.1 TH/MM3 (0-0.2); BASOPHIL % 0.7 % (0.0-2.0); EOSINOPHIL # 0.2 TH/MM3 (0-0.4); EOSINOPHIL % 2.3 % (0.0-4.0); HEMOGLOBIN 15.1 GM/DL (13.0-17.0); LYMPH % 32.1 % (9.0-44.0); LYMPHOCYTE # 2.3 TH/MM3 (1.0-4.8); MEAN CELL VOLUME 96.3 FL (80.0-100.0); MEAN CORPUSCULAR HGB CONC 34.3 % (32.0-36.0); MEAN PLATELET VOLUME 8.2 FL (7.0-11.0); MONO % 5.9 % (0.0-8.0); MONOCYTE # 0.4 TH/MM3 (0-0.9); PLATELET COUNT 214 TH/MM3 (150-450); RED BLOOD COUNT 4.58 MIL/MM3 (4.50-5.90); RED CELL DISTRIBUTION WIDTH 13.8 % (11.6-17.2); WHITE BLOOD COUNT 7.2 TH/MM3 (4.0-11.0)
[2017-11-14] MEDS: THIAMINE HCL 100 MG TAB PO SCH (09:37)
[2017-11-14] MEDS: FOLIC ACID 1 MG TAB PO SCH (09:37)
[2017-11-14] MEDS: CITALOPRAM HYDROBROMIDE 20 MG TAB PO SCH (09:37)
[2017-11-14] MEDS: GABAPENTIN 300 MG CAP PO SCH ×2 (09:37→13:00)
[2017-11-14 09:39] LABS: CHOLESTEROL 139 MG/DL (120-200); TRIGLYCERIDES 143 MG/DL (42-150)
[2017-11-14 09:48] LABS: CHOLESTEROL/ HDL RATIO 2.12 RATIO; HDL CHOLESTEROL 65.4 MG/DL (40.0-60.0); LDL CHOLESTEROL 45 MG/DL (0-99)
[2017-11-14 12:36] LABS: HEMOGLOBIN A1C 4.8 % (4.3-6.0)
[2017-11-14] MEDS: ACETAMINOPHEN 325 MG TAB PO PRN ×2 (13:06→19:45)
--- NOTE | 2017-11-14 14:40 | HHI.HP ---
Provisional Diagnosis Admission Date Nov 13, 2017 at 15:24 [place]. 1. Bipolar disorder, type II, presently depressed 2. Polysubstance dependence [place] II. Deferred Certification of Person's Competence To Provide Express and Informed Consent I have personally examined Tu Posey , a person being served at [facility] on, Nov 14, 2017 14:40. Express and informed consent means consent voluntarily given in writing, by a competent person, after sufficient explanation and disclosure of the subject matter involved to enable the person to make a knowing and willful decision without any element of force, fraud, deceit, duress, or other form of constraint or coercion. This person is 18 years of age or older, is not now known to be incompetent to consent to treatment with a guardian advocate, and does not have a health care surrogate or proxy currently making medical treatment decisions. I have found this person to be one of the following: [x] Competent to provide express and informed consent, as defined above, for voluntary admission to this facility and is competent to provide express and informed consent for treatment. He/she has the consistent capacity to make well reasoned, willful, and knowing decisions concerning his or her medical or mental health treatment. The person fully and consistently understands the purpose of the admission for examination/placement and is fully capable of personally exercising all rights assured [place] Incompetent to provide express and informed consent to voluntary admission, and this is incompetent to provide express and informed consent to treatment. The person must be transferred to involuntary status and a petition for a guardian advocate filed with the Circuit Court. [] Refusing to provide express and informed consent to voluntary admission but is competent to provide express and informed consent for treatment. The person must be discharged or transferred to involuntary status. Form shall be completed within 24 hours of a person's arrival at the receiving facility and filed in the clinical record of each person: 1. Admitted on a voluntary basis 2. Permitted to provide express and informed consent to his/her own treatment 3. Allowed to transfer from involuntary to voluntary status 4. Prior to permitting a person to consent to his or her own treatment after having been previously found incompetent to consent to treatment. History of Present Illness Capacity: Has Capacity Psych Chief Complaint: Depression, SI HPI From my consultation note: Mr. Posey is a 47-year-old male with a reported history of bipolar disorder, PTSD and substance use issues, who presented to the emergency department voluntarily complaining of suicidal ideation. Reviewing the electronic medical record, I note that the patient was admitted here most recently under my care in May of 2015, and his discharge diagnosis at that time was bipolar disorder type 2 and polysubstance dependence. The patient seen and examined. Chart reviewed. Case discussed with nurse in the J pod. On my examination today, the patient reports that he has been off of his psychotropic medications for about a month. He says that he was hospitalized at [facility] a month ago and was given prescriptions but could not have them filled. He says that his threw him out a few days ago and so he is presently homeless. In the setting of this stressor he has been feeling increasingly depressed and having suicidal ideation to hang himself. He denies any homicidal ideation. He endorses vague auditory hallucinations, although he cannot describe these in any detail, as well as paranoia. The remainder of the psychiatric ROS is negative. The patient verbalizes no physical complaints at this time. On my exam today 11/14: Patient seen and examined with nurse. A bed became available on our inpatient psychiatric unit after I had seen the patient in consultation, and so I was able to admit the patient here. Chart reviewed. Case discussed with nursing staff. On my examination today, the patient remains dysphoric. He complains of ongoing low mood. Sleep was poor overnight. He endorses ongoing deprecatory but not command auditory hallucinations. Paranoia reported. He endorses suicidal ideation with plan to hang himself, although he contracts for safety on the inpatient unit. He denies side effects from medications. He complains of feeling somewhat shaky with withdrawals but otherwise has no physical complaints. I obtained patient's past psychiatric, family, chemical dependency and social history at the time of my initial consultation yesterday, and these data are unchanged today. Review of Systems Except as stated in HPI: all other systems reviewed are Neg Past Psych History Psychological trauma history No reported trauma history to me Violence risk - others (6 mos) Lower imminent risk. No HI. Substance use is a chronic risk factor. Violence risk - self (6 mos) Concern for elevated risk. Ongoing suicidal ideation with plan to hang himself. Substance Abuse History Drugs/Alcohol past 12 months See above Past Family Social History Coded Allergies: penicillin G (Unverified Allergy, Severe, THROAT CLOSES, 11/12/17) Past Medical History See electronic medical record Discontinued Reported Medications Trazodone (Trazodone) 100 Mg Tablet, 100 MG PO HS for Control Depression, #30 TAB 0 Refills 11/12/17 Gabapentin (Gabapentin) 600 Mg Tab, 600 MG PO TID, #90 TAB 0 Refills 11/12/17 Citalopram (Citalopram) 40 Mg Tab, 40 MG PO DAILY for Control Depression, #30 TAB 0 Refills 11/12/17 Olanzapine (Zyprexa) 5 Mg Tab, 5 MG PO DAILY, #30 TAB 0 Refills 02/17/17 Citalopram (Citalopram) 10 Mg Tab, 10 MG PO DAILY for Control Depression, #30 TAB 0 Refills 02/17/17 Current Medications Medications (Trade) Dose Ordered Sig/Lissette Route Start Time Stop Time Status Last Admin (Romazicon Inj) 0.2 mg Q1M PRN IV PUSH 11/13/17 08:45 (Ativan) 1 mg Q4H PRN PO 11/13/17 08:45 11/14/17 13:06 (Ativan Inj) 1 mg Q4H PRN IV PUSH 11/13/17 08:45 (Ativan) 2 mg Q2H PRN PO 11/13/17 08:45 (Ativan Inj) 2 mg Q2H PRN IV PUSH 11/13/17 08:45 (Ativan Inj) 2 mg Q1H PRN IV PUSH 11/13/17 08:45 (Ativan Inj) 2 mg Q15M PRN IV PUSH 11/13/17 08:45 (Neurontin) 300 mg TID PO 11/13/17 18:00 11/14/17 13:00 (ZyPREXA) 10 mg HS PO 11/13/17 21:00 11/13/17 21:16 (CeleXA) 20 mg DAILY PO 11/14/17 09:00 11/14/17 09:37 (Vitamin B1) 100 mg DAILY PO 11/14/17 09:00 11/14/17 09:37 (Folate) 1 mg DAILY PO 11/14/17 09:00 11/14/17 09:37 (Tylenol) 650 mg Q4H PRN PO 11/13/17 15:30 11/14/17 13:06 (Milk Of Magnesia Liq) 30 ml DAILY PRN PO 11/13/17 15:30 (Mag-Al Plus Susp Liq) 30 ml Q6H PRN PO 11/13/17 15:30 (Habitrol 21 Mg Patch.24 Hr) 1 patch DAILY PRN T-DERMAL 11/13/17 15:30 (Desyrel) 50 mg HS PRN PO 11/13/17 21:00 (Atarax) 50 mg Q6H PRN PO 11/13/17 15:30 (Cogentin) 1 mg Q12H PRN PO 11/13/17 15:30 (Cogentin Inj) 1 mg Q12H PRN IM 11/13/17 15:30 Miscellaneous Information 1 DAILY PRN T-DERMAL 11/13/17 16:00 Family Psych History See above Social History See above Patient's Strengths (min. 2) In a monitored setting. Verbally fluent. Physical Exam Physical exam completed by ED provider. On my examination today, the patient is mildly tremulous but has no diaphoresis, no mydriasis, no other signs of GABAergic withdrawal. No other motor abnormalities noted. He is in no acute distress. Labs and vitals reviewed: Vital Signs Vital Signs Date Time Temp Pulse Resp B/P (MAP) Pulse Ox O2 Delivery O2 Flow Rate FiO2 11/14/17 06:01 98.0 72 17 136/73 (94) 98 11/13/17 16:44 Room Air Lab Results Item Value Date Time White Blood Count 7.2 TH/MM3 11/14/17 0856 Hemoglobin 15.1 GM/DL 11/14/17 0856 Platelet Count 214 TH/MM3 11/14/17 0856 Sodium Level 142 MEQ/L 11/12/17 1438 Potassium Level 3.9 MEQ/L 11/14/17 0856 Chloride Level 105 MEQ/L 11/12/17 1438 Carbon Dioxide Level 26.6 MEQ/L 11/12/17 1438 Blood Urea Nitrogen 10 MG/DL 11/12/17 1438 Creatinine 0.85 MG/DL 11/12/17 1438 Estimat Glomerular Filtration Rate 97 ML/MIN 11/12/17 1438 Random Glucose 76 MG/DL 11/12/17 1438 Hemoglobin A1c 4.8 % 11/14/17 0856 Magnesium Level 2.0 MG/DL 11/14/17 0856 Alanine Aminotransferase (ALT/SGPT) 59 U/L 11/12/17 1438 Aspartate Amino Transf (AST/SGOT) 51 U/L H 11/12/17 1438 Alkaline Phosphatase 100 U/L 11/12/17 1438 Urine Cocaine Screen POS H 11/12/17 1432 Ethyl Alcohol Level 90 MG/DL H 11/12/17 1438 Labs reviewed. Leukocytosis resolved. Hypokalemia resolved. No hypomagnesemia. Mild AST elevation likely related to substance use. EKG Sinus rhythm with QTcH of 379ms, not prolonged. Mental Status Examination Appearance: Disheveled Consciousness: Alert Orientation: x4 Motor Activity: Other (motor exam as above) Speech: Slow Language: Adequate Fund of Knowledge: Adequate Attention and Concentration: Adequate Memory: Unremarkable Mood: Other (depressed) Affect: Other (restricted) Thought Process & Associations: Other (somewhat slowed but linear) Thought Content: Appropriate Hallucination Type: None Delusion Type: None Suicidal Ideation: Yes Suicidal Plan: Yes (hang self) Suicidal Intention: No Homicidal Ideation: No Homicidal Plan: No Homicidal Intention: No Insight: Fair Judgment: Adequate (fair) Assessment & Plan Problem List: (1) Bipolar 2 disorder, major depressive episode ICD Codes: F31.81 - Bipolar II disorder (2) Polysubstance dependence ICD Codes: F19.20 - Polysubstance dependence Status: Acute Assessment & Plan 47-year-old male voluntarily admitted to the inpatient unit in depressed phase of bipolar illness with comorbid substance use issues. Patient remains depressed today with ongoing suicidal ideation with plan to hang himself. He does contract for safety on the inpatient unit. He is pleased to be back on his psychotropics, and I am hopeful that he will stabilize with these medications, although further adjustments may be necessary. Patient requires inpatient psychiatric hospitalization or safety, observation and further stabilization. Admit inpatient. Voluntary status. Continue Celexa 20 mg daily and Zyprexa 10 mg at bedtime although these agents could certainly be titrated to target any residual symptoms. Continue CIWA scale of Ativan for the management of any withdrawal. Thiamine and folate. Seizure precautions. Titrate gabapentin to 400 mg 3 times daily as the patient reports today that he was in fact previously prescribed 800 mg 3 times a day. I have asked the nurse to obtain medication list from patient's pharmacy. Atarax as needed for anxiety, Cogentin as needed for EPS, trazodone as needed for sleep. Vitals every shift. Counselor to see. Disposition planning. Estimated length of stay: 5-7 days. Discharge Planning Pending psychiatric stabilization. Request HC Surrog/Guard Advoc?: No Uziel Palacios MD Nov 14, 2017 14:40
[2017-11-14 17:00] VITALS: BP 130/69; PULSE 103; RESP 18; TEMP 98.3; O2SAT 100
[2017-11-14] MEDS: GABAPENTIN 400 MG CAP PO SCH (18:23)
[2017-11-14] MEDS: OLANZapine 10 MG TAB PO SCH (20:23)
[2017-11-15 00:43] VITALS: BP 120/59; PULSE 60; RESP 17; TEMP 97.3
[2017-11-15 06:59] VITALS: BP 98/59; PULSE 65; RESP 17; TEMP 97.5; O2SAT 92
[2017-11-15] MEDS: CITALOPRAM HYDROBROMIDE 20 MG TAB PO SCH (08:55)
[2017-11-15] MEDS: THIAMINE HCL 100 MG TAB PO SCH (08:55)
[2017-11-15] MEDS: GABAPENTIN 400 MG CAP PO SCH ×3 (08:55→17:52)
[2017-11-15] MEDS: FOLIC ACID 1 MG TAB PO SCH (08:55)
[2017-11-15] MEDS: LORazepam 1 MG TAB PO PRN ×3 (09:05→17:03)
[2017-11-15] MEDS: ACETAMINOPHEN 325 MG TAB PO PRN ×2 (09:08→20:25)
--- NOTE | 2017-11-15 15:11 | HHI.PYPN ---
Subjective Chief Complaint: Depression, SI Remarks Patient seen in his room with nurse rayo, chart review, patient compliant medication. Patient is needed multiple doses of Ativan per the [facility] protocol. Patient sitting in his room somewhat nervous and jittery with very poor eye contact stating he feels better and he just wants to go home to be with his . He does acknowledge that he and his constitution party together both of alcohol and with cocaine. He minimizes cocaine use. Though he has had 7 urine toxicology is positive for cocaine in 2017. He acknowledges multiple detoxes in the past and rehabs in the past. Even though the patient is voluntary I feel is still needs further observation assessment. For at least another 24 hours. I did discuss this with the patient it appears she is going to be signing a ror. For now continue treatment observe patient will further assess tomorrow Review of Systems Except as stated in HPI: all other systems reviewed are Neg Mental Status Examination Appearance: Disheveled Consciousness: Alert Orientation: x4 Motor Activity: Other Speech: Slow Language: Adequate Fund of Knowledge: Adequate Attention and Concentration: Adequate Memory: Unremarkable Mood: Other Affect: Other Thought Process & Associations: Other Thought Content: Appropriate Hallucination Type: None Delusion Type: None Suicidal Ideation: Yes Suicidal Plan: Yes Suicidal Intention: No Homicidal Ideation: No Homicidal Plan: No Homicidal Intention: No Insight: Fair Judgment: Adequate Results Vitals/IOs Vital Signs Date Time Temp Pulse Resp B/P (MAP) Pulse Ox O2 Delivery O2 Flow Rate FiO2 11/15/17 06:59 97.5 65 17 98/59 (72) 92 11/13/17 16:44 Room Air Intake and Output 11/15/17 11/15/17 11/16/17 08:00 16:00 00:00 Intake Total 240 ml Balance 240 ml Assessment & Plan Problem List: (1) Bipolar 2 disorder, major depressive episode ICD Codes: F31.81 - Bipolar II disorder (2) Polysubstance dependence ICD Codes: F19.20 - Polysubstance dependence Status: Acute Assessment & Plan Estimated LOS: days patient now denies suicidality though he verified suicidality yesterday with Dr. Palacios. A focus needs a further 24-48 hours observation. [facility] Will further assess tomorrow Justification for Cont. Inpt. At this time patient will decompensate and perhaps won't withdrawal if discharged to a lower level of care Discharge Planning Patient wish to be discharged to his living arrangement with his girlfriend Request HC Surrog/Guard Advoc?: No Jose Sweet MD Nov 15, 2017 15:11
[2017-11-15 18:47] VITALS: BP 137/84; PULSE 93; RESP 17; TEMP 97.7; O2SAT 96
[2017-11-15] MEDS: OLANZapine 10 MG TAB PO SCH (20:24)
[2017-11-16 01:00] VITALS: BP 116/63; PULSE 68; RESP 17; TEMP 97.6
[2017-11-16 06:15] VITALS: BP 103/56; PULSE 70; RESP 17; TEMP 98; O2SAT 97
[2017-11-16] MEDS: GABAPENTIN 400 MG CAP PO SCH (09:34)
[2017-11-16] MEDS: THIAMINE HCL 100 MG TAB PO SCH (09:34)
[2017-11-16] MEDS: CITALOPRAM HYDROBROMIDE 20 MG TAB PO SCH (09:35)
[2017-11-16] MEDS: FOLIC ACID 1 MG TAB PO SCH (09:35)
[2017-11-16] MEDS ORDERED: FOLI1TAB6 PO (11:55)
[2017-11-16] MEDS ORDERED: THIA100 PO (11:55)
[2017-11-16] MEDS ORDERED: NEUR400C PO (11:55)
[2017-11-16] MEDS ORDERED: OLAN10TA PO (11:55)
[2017-11-16] MEDS ORDERED: CELE20TA PO (11:55)
--- NOTE | 2017-11-16 12:00 | HHI.DS ---
Psychiatry Discharge Summary Inpatient Psychiatric care?: Yes Advance Directive: Yes Mental Health AdvanceDirective: No Health Care Proxy: No Admission Admission Date Nov 13, 2017 at 15:24 Admission Diagnosis: (1) Polysubstance dependence ICD Code: F19.20 - Polysubstance dependence (2) Bipolar 2 disorder, major depressive episode ICD Code: F31.81 - Bipolar II disorder Brief History From my consultation note: Mr. Posey is a 47-year-old male with a reported history of bipolar disorder, PTSD and substance use issues, who presented to the emergency department voluntarily complaining of suicidal ideation. Reviewing the electronic medical record, I note that the patient was admitted here most recently under my care in May of 2015, and his discharge diagnosis at that time was bipolar disorder type 2 and polysubstance dependence. The patient seen and examined. Chart reviewed. Case discussed with nurse in the J pod. On my examination today, the patient reports that he has been off of his psychotropic medications for about a month. He says that he was hospitalized at [facility] a month ago and was given prescriptions but could not have them filled. He says that his threw him out a few days ago and so he is presently homeless. In the setting of this stressor he has been feeling increasingly depressed and having suicidal ideation to hang himself. He denies any homicidal ideation. He endorses vague auditory hallucinations, although he cannot describe these in any detail, as well as paranoia. The remainder of the psychiatric ROS is negative. The patient verbalizes no physical complaints at this time. On my exam today 11/14: Patient seen and examined with nurse. A bed became available on our inpatient psychiatric unit after I had seen the patient in consultation, and so I was able to admit the patient here. Chart reviewed. Case discussed with nursing staff. On my examination today, the patient remains dysphoric. He complains of ongoing low mood. Sleep was poor overnight. He endorses ongoing deprecatory but not command auditory hallucinations. Paranoia reported. He endorses suicidal ideation with plan to hang himself, although he contracts for safety on the inpatient unit. He denies side effects from medications. He complains of feeling somewhat shaky with withdrawals but otherwise has no physical complaints. I obtained patient's past psychiatric, family, chemical dependency and social history at the time of my initial consultation yesterday, and these data are unchanged today. Tobacco Use In Past 30 Days: 5 or More Cigarettes/Day Alcohol Use: 4 or More Times Per Week Hospital Course Patient's hospital course was uneventful, he showed some mild withdrawal symptoms early on though that resolved. She compliance with medications. Initial concern about getting home to his also. Patient seen today by me he denies suicidality homicidality voices or visions. States the medications are helping his mood and he feels stable to agree wishes to be discharged today to reunite with his family. Thus patient will be discharged today to himself, Rx 1 month, follow-up [facility] medication management and further substance abuse treatment Results Blood Pressure 103 / 56 Vital Signs Date Time Temp Pulse Resp B/P (MAP) Pulse Ox O2 Delivery O2 Flow Rate FiO2 11/16/17 06:15 98.0 70 17 103/56 (72) 97 11/13/17 16:44 Room Air Laboratory Tests Test 11/14/17 08:56 HDL Cholesterol 65.4 MG/DL (40.0-60.0) Laboratory Results Test 11/14/17 08:56 Cholesterol Level 139 MG/DL (120-200) HDL Cholesterol 65.4 MG/DL (40.0-60.0) Hemoglobin A1c 4.8 % (4.3-6.0) LDL Cholesterol 45 MG/DL (0-99) Triglycerides Level 143 MG/DL (42-150) Summary of Procedures None done Pending results at discharge: No Medications # of Antipsychotic meds at D/C: 1 Approp Antipsych med options 1 - Minimum of three failed multiple trials of monotherapy. 2 - Documented plan to taper to monotherapy due to previous use of multiple meds OR cross-taper in progress at D/C. 3 - Documentation of augmentation of Clozapine. 4 - Justification other than those listed in allowable values 1-3, document here : Discharge Discharge Date: Nov 16, 2017 Discharge Diagnosis: (1) Bipolar 2 disorder, major depressive episode Diagnosis: Principal ICD Code: F31.81 - Bipolar II disorder (2) Polysubstance dependence Diagnosis: Secondary ICD Code: F19.20 - Polysubstance dependence Status: Acute Pt Condition on Discharge: Stable Discharge Disposition: Discharge Home Discharge Instructions Diet Instructions: As Tolerated, No Restrictions Activities you can perform: Regular-No Restrictions Scheduled Appointment: Ivan Marchman Act Discharge Time > 30 minutes (follow-up medication management and substance abuse assessment and treatment) Mental Status Examination Appearance: Disheveled Consciousness: Alert Orientation: x4 Motor Activity: Other Speech: Slow Language: Adequate Fund of Knowledge: Adequate Attention and Concentration: Adequate Memory: Unremarkable Mood: Other Affect: Other Thought Process & Associations: Other Thought Content: Appropriate Hallucination Type: None Delusion Type: None Suicidal Ideation: Yes Suicidal Plan: Yes Suicidal Intention: No Homicidal Ideation: No Homicidal Plan: No Homicidal Intention: No Insight: Fair Judgment: Adequate Discharge/Advance Care Plan Health Problems: (1) Bipolar 2 disorder, major depressive episode (2) Polysubstance dependence Goals to promote your health * To prevent worsening of your condition and complications * To maintain your health at the optimal level Directions to meet your goals Take your medications as prescribed Follow your dietary instruction Follow activity as directed Keep your appointments as scheduled Take your immunizations and boosters as scheduled If your symptoms worsen call your PCP, if no PCP go to Urgent Care Center or Emergency Room For 06/06 questions related to your inpatient stay or results of tests pending at discharge, please contact Dr. Jose Sweet at Smoking is Dangerous to Your Health. Avoid second hand smoking Jose Sweet MD Nov 16, 2017 12:00
--- NOTE | 2017-11-16 16:24 | PD.TTN ---
Patient Problems 1. Discharge planning 2. Medication compliance 3. Knowledge deficit 4. Lack of coping skills Progress Toward Goals Provider Present: Dr. Jules Sweet Provider Input: Dr. Sweet's treatment team met to discuss patient's treatment plan, medication and discharge. Patient has stablized and is being discharged. Nurse(s) Input: Patient's nurse Patricia reports patient reports prozac causes him to have a runny nose. Patient had ENT look at him and could not find anything wrong. Patient reports he has bed bugs at home. Psychiatric Counselors Present: SAJAN Miles Psych Therapist Input: Patient has been discharged. Patient will follow up with [facility]. Group Spec/RT/OT/JEREZ Present: Hayder Ferris OT Group Spec/RT/OT/JEREZ Input: Patient does not attend groups. Nathalie Alonzo Nov 16, 2017 16:24
== END 2017-11-16 13:50 | disposition home or self-care (01) | DRG 885 ==
LOC: NEPD 13:55 → NEDA 11-13 15:24 → H260 11-13 17:00
PROVIDERS: ADMIT Psychiatry & Neurology Psychiatry; ATTEND Psychiatry & Neurology Psychiatry
DX: F31.81 Bipolar II disorder (principal); G40.909 Epilepsy, unspecified, not intractable, without status epilepticus; F19.20 Other psychoactive substance dependence, uncomplicated; F43.10 Post-traumatic stress disorder, unspecified; Z59.0 Homelessness
CPT/HCPCS: 80053; 80061; 80307; 81001; 83036; 83735; 84132; 84443; 85025; 93005; 99285

== ENCOUNTER 2017-12-18 17:33 | Emergency (ER) | payer OTHER ==
[~2017-12-18] VITALS: Ht 175.3 cm; Wt 69.0 kg
[~2017-12-18 17:33] MED LIST changes: +CELE20TA PO; -CITA10TA4 PO; +FOLI1TAB6 PO; +NEUR400C PO; +OLAN10TA PO; +THIA100 PO; -ZYPR5TAB PO
[2017-12-18 17:43] VITALS: BP 147/100; PULSE 72; RESP 16; TEMP 98.1; O2SAT 99
[2017-12-18] MEDS ORDERED: XANA2TAB2 PO (17:54)
[2017-12-18] MEDS ORDERED: ZYPR20TA PO (17:54)
[2017-12-18 17:56] VITALS: O2SAT 99
[2017-12-18] MEDS ORDERED: SODIUM CHLOR 0.9% 1000 ML INJ 1,000 ML IV SCH (18:00)
--- NOTE | 2017-12-18 18:03 | PD ---
HPI Chief Complaint: OD/ Ingestion Time Seen by Provider: 17:50 Travel History International Travel<30 days: No Contact w/Intl Traveler<30days: No Traveled to known affect area: No History of Present Illness HPI 47-year-old male was brought in from the local group home for altered mental status. Patient was arrested this afternoon. Patient was banging his head against a wall. Patient told my nurse that he took 40 pills of Xanax 2 mg each around 2: 00 o'clock this afternoon. Patient has history of anxiety and bipolar disorder. Patient also was on Zyprexa and Celexa. Patient denies any other medication. Patient was found to be drowsy and brought from the group home to ED for evaluation. Patient became very drowsy after that and unable to provide any more information. PFSH Past Medical History Arthritis: No Asthma: No Bipolar Disorder: Yes Anxiety: Yes Depression: Yes Heart Rhythm Problems: No Cancer: Yes (Per pt liver cancer 2012) Cardiovascular Problems: Yes (Per pt hypertension) High Cholesterol: No Chest Pain: No Congestive Heart Failure: No COPD: No Cerebrovascular Accident: No Diabetes: No (Per pt) Diminished Hearing: No GERD: No Genitourinary: No Headaches: Yes (Migraine 1x wk for 4 years) Hepatitis: Yes (HEP C) Hiatal Hernia: No Kidney Stones: No Musculoskeletal: No Neurologic: Yes Psychiatric: Yes (Bipolar) Reproductive: No Respiratory: No Immunizations Current: No Migraines: No Renal Failure: No Seizures: Yes (Per pt diagnosed at a young age) Sleep Apnea: No Ulcer: Yes Tetanus Vaccination: > 5 Years Past Surgical History Surgical History: No Previous Surgery Abdominal Surgery: No Cardiac Surgery: No Ear Surgery: No Endocrine Surgery: No Eye Surgery: No Genitourinary Surgery: No Gynecologic Surgery: No Oral Surgery: No Thoracic Surgery: No Social History Alcohol Use: Yes (6-12 beers daily) Tobacco Use: Yes (1 PPD) Substance Use: No Allergies-Medications (Allergen,Severity, Reaction): Coded Allergies: penicillin G (Unverified Allergy, Severe, THROAT CLOSES, 12/18/17) Reported Meds & Prescriptions Reported Meds & Active Scripts Active Gnp Vitamin B-1 (Thiamine HCl) 100 Mg Tab 100 Mg PO DAILY Olanzapine 10 Mg Tab 10 Mg PO HS Neurontin (Gabapentin) 400 Mg Cap 400 Mg PO TID Folic Acid 1 Mg Tablet 1 Mg PO DAILY Celexa (Citalopram Hydrobromide) 20 Mg Tab 20 Mg PO DAILY Reported Xanax (Alprazolam) 2 Mg Tab 2 Mg PO TID PRN Zyprexa (Olanzapine) 20 Mg Tab 20 Mg PO DAILY Review of Systems General / Constitutional: No: Fever Eyes: No: Visual changes HENT: No: Headaches Cardiovascular: No: Chest Pain or Discomfort Respiratory: No: Shortness of Breath Gastrointestinal: No: Abdominal Pain Genitourinary: No: Dysuria Musculoskeletal: No: Pain Skin: No Rash Neurologic: No: Weakness Psychiatric: No: Depression Endocrine: No: Polydipsia Hematologic/Lymphatic: No: Easy Bruising Physical Exam Narrative GENERAL: Well-nourished, well-developed patient. SKIN: Focused skin assessment warm/dry. HEAD: Normocephalic. Patient has a small abrasion the scalp above the left forehead. Mild soft tissue swelling noted. EYES: No scleral icterus. No injection or drainage. Pupils 2 mm equal reactive. NECK: Supple, trachea midline. No JVD or lymphadenopathy. CARDIOVASCULAR: Regular rate and rhythm without murmurs, gallops, or rubs. RESPIRATORY: Breath sounds equal bilaterally. No accessory muscle use. GASTROINTESTINAL: Abdomen soft, non-tender, nondistended. MUSCULOSKELETAL: No cyanosis, or edema. BACK: Nontender without obvious deformity. No CVA tenderness. Neurologic exam: Patient's drowsy however responded to pain stimuli. Deep tendon reflexes 2+ and equal. Negative Babinski. Data Data Last Documented VS Vital Signs Date Time Temp Pulse Resp B/P (MAP) Pulse Ox O2 Delivery O2 Flow Rate FiO2 12/18/17 17:56 99 Room Air 12/18/17 17:43 98.1 72 16 147/100 (116) Orders Orders Complete Blood Count With Diff (12/18/17 17:50) Comprehensive Metabolic Panel (12/18/17 17:50) Thyroid Stimulating Hormone (12/18/17 17:50) Electrocardiogram (12/18/17 17:50) Oximetry (12/18/17 17:50) Iv Access Insert/Monitor (12/18/17 17:50) Ecg Monitoring (12/18/17 17:50) Psych Screen (12/18/17 17:50) Drug Screen, Random Urine (12/18/17 17:50) Alcohol (Ethanol) (12/18/17 17:50) Salicylates (Aspirin) (12/18/17 17:50) Tylenol (Acetaminophen) (12/18/17 17:50) Sodium Chlor 0.9% 1000 Ml Inj (Ns 1000 M (12/18/17 18:00) Ct Brain W/O Iv Contrast(Rout) (12/18/17 18:01) Labs Laboratory Tests Test 12/18/17 18:24 White Blood Count 10.5 TH/MM3 Red Blood Count 4.92 MIL/MM3 Hemoglobin 15.9 GM/DL Hematocrit 46.5 % Mean Corpuscular Volume 94.5 FL Mean Corpuscular Hemoglobin 32.4 PG Mean Corpuscular Hemoglobin Concent 34.3 % Red Cell Distribution Width 12.7 % Platelet Count 264 TH/MM3 Mean Platelet Volume 8.2 FL Neutrophils (%) (Auto) 58.2 % Lymphocytes (%) (Auto) 33.0 % Monocytes (%) (Auto) 6.0 % Eosinophils (%) (Auto) 2.0 % Basophils (%) (Auto) 0.8 % Neutrophils # (Auto) 6.1 TH/MM3 Lymphocytes # (Auto) 3.5 TH/MM3 Monocytes # (Auto) 0.6 TH/MM3 Eosinophils # (Auto) 0.2 TH/MM3 Basophils # (Auto) 0.1 TH/MM3 CBC Comment DIFF FINAL Differential Comment Blood Urea Nitrogen 7 MG/DL Creatinine 0.95 MG/DL Random Glucose 80 MG/DL Total Protein 7.7 GM/DL Albumin 4.2 GM/DL Calcium Level 9.3 MG/DL Alkaline Phosphatase 97 U/L Aspartate Amino Transf (AST/SGOT) 22 U/L Alanine Aminotransferase (ALT/SGPT) 37 U/L Total Bilirubin 0.6 MG/DL Sodium Level 141 MEQ/L Potassium Level 3.6 MEQ/L Chloride Level 105 MEQ/L Carbon Dioxide Level 31.8 MEQ/L Anion Gap 4 MEQ/L Estimat Glomerular Filtration Rate 86 ML/MIN Thyroid Stimulating Hormone 3rd Gen 0.757 uIU/ML Salicylates Level 5.2 MG/DL Acetaminophen Level LESS THAN 2.0 MCG/ML Ethyl Alcohol Level LESS THAN 3 MG/DL MDM Medical Decision Making Medical Screen Exam Complete: Yes Emergency Medical Condition: Yes Interpretation(s) Last Impressions Head CT 12/18/171800 Signed Impressions: Service Date/Time: Monday, December 18, 2017 18:33 - CONCLUSION: Unremarkable study except for chronic sinusitis. Brenna Smith MD 1915 p.m. CBC within normal limit. CMP within normal limit. TSH normal. Salicylate normal. Acetaminophen normal. Alcohol negative. Differential Diagnosis Differential diagnosis including drug overdose, head injury, electrolyte imbalance. Narrative Course 47-year-old male with altered mental status. Patient took 40 pills of Xanax 2 mg each this afternoon. Patient also was banging his head against the wall and has an abrasion to the forehead. Normal saline solution 1 25 cc an hour. Spoke with poison control. Advised observation within 6 and 8 hours. Diagnosis Primary Impression: Drug overdose Qualified Codes: T50.904A - Poisoning by unspecified drugs, medicaments and biological substances, undetermined, initial encounter Additional Impressions: Closed head injury Qualified Codes: S09.90XA - Unspecified injury of head, initial encounter Scalp abrasion Qualified Codes: S00.01XA - Abrasion of scalp, initial encounter Patient Instructions: General Instructions Additional Instructions: Head trauma instructions given. Polysporin ointment daily. Patient released to the custody of police department. Med/Other Pt SpecificInfo: No Change to Meds Disposition: [address] LAW ENFORCEMNT Condition: Stable Allan Pitts MD Dec 18, 2017 18:03
[2017-12-18 18:28] LABS: AUTOMATED NEUTROPHIL # 6.1 TH/MM3 (1.8-7.7); BASOPHIL # 0.1 TH/MM3 (0-0.2); BASOPHIL % 0.8 % (0.0-2.0); EOSINOPHIL # 0.2 TH/MM3 (0-0.4); HEMATOCRIT 46.5 % (39.0-51.0); HEMOGLOBIN 15.9 GM/DL (13.0-17.0); LYMPHOCYTE # 3.5 TH/MM3 (1.0-4.8); MEAN CELL VOLUME 94.5 FL (80.0-100.0); MEAN CORPUSCULAR HEMOGLOBIN 32.4 PG (27.0-34.0); MEAN CORPUSCULAR HGB CONC 34.3 % (32.0-36.0); MEAN PLATELET VOLUME 8.2 FL (7.0-11.0); MONOCYTE # 0.6 TH/MM3 (0-0.9); NEUT % 58.2 % (16.0-70.0); PLATELET COUNT 264 TH/MM3 (150-450); RED BLOOD COUNT 4.92 MIL/MM3 (4.50-5.90); RED CELL DISTRIBUTION WIDTH 12.7 % (11.6-17.2); WHITE BLOOD COUNT 10.5 TH/MM3 (4.0-11.0)
--- NOTE | 2017-12-18 18:45 | RADRPT ---
EXAM DATE/TIME: 12/18/2017 18:33 [place] COMPARISON: CT BRAIN W/O CONTRAST, August 25, 2015, 20:08. INDICATIONS : Hit head on chcf cell wall.Left abrasion, Lethargic post xanax ingestion. RADIATION DOSE: 33.94 CTDIvol (mGy) MEDICAL HISTORY : Seizures. Cardiovascular disease Hep C, Liver ca SURGICAL HISTORY : None. ENCOUNTER: Initial ACUITY: 1 day PAIN SCALE: 6/10 LOCATION: Left cranial TECHNIQUE: Multiple contiguous axial images were obtained of the head. Using automated exposure control and adj ustment of the mA and/or kV according to patient size, radiation dose was kept as low as reasonably a chievable to obtain optimal diagnostic quality images. DICOM format image data is available electro nically for review and comparison. FINDINGS: There is no evidence for intracranial hemorrhage, mass effect, mass lesions, edema, or extra-axial fl uid collections. The visualized bony structures appear intact. The ventricles are normal size for t he patient's age. There are no signs of acute infarction for technique. There is mild mucoperiosteal thickening within multiple sinuses mainly eithmoid air cells. CONCLUSION: Unremarkable study except for chronic sinusitis. Brenna Smith MD on December 18, 2017 at 18:41 Board Certified Radiologist. This report was verified electronically.
[2017-12-18 18:47] LABS: ALBUMIN 4.2 GM/DL (3.4-5.0); AST (GOT) 22 U/L (15-37); BICARBONATE 31.8 MEQ/L (21.0-32.0); BLOOD UREA NITROGEN 7 MG/DL (7-18); CALCIUM 9.3 MG/DL (8.5-10.1); CHLORIDE 105 MEQ/L (98-107); CREATININE 0.95 MG/DL (0.60-1.30); GLOMERULAR FILTRATION RATE 86 ML/MIN (>89); GLUCOSE,RANDOM 80 MG/DL (74-106); SODIUM (NA) 141 MEQ/L (136-145)
[2017-12-18 18:56] LABS: ALKALINE PHOSPHATASE 97 U/L (45-117); ALT (GPT) 37 U/L (12-78); TOTAL BILIRUBIN ADULT 0.6 MG/DL (0.2-1.0); TOTAL PROTEIN 7.7 GM/DL (6.4-8.2)
[2017-12-18 18:58] LABS: ACETAMINOPHEN LESS THAN 2.0 MCG/ML (10.0-30.0)
--- NOTE | 2017-12-19 22:12 | EKG ---
Date Performed: 12/18/2017 Time Performed: 18:17:35 PTAGE: 47 years EKG: Sinus rhythm NORMAL ECG PREVIOUS TRACING : 11/13/2017 18.33 DOCTOR: Sal Rhodes Interpretating Date/Time 12/19/2017 22:04:15
== END 2017-12-18 20:09 ==
LOC: NEPD 17:33
DX: S09.90XA Unspecified injury of head, initial encounter (principal); S00.01XA Abrasion of scalp, initial encounter; T42.4X2A Poisoning by benzodiazepines, intentional self-harm, initial encounter; J32.9 Chronic sinusitis, unspecified; F31.9 Bipolar disorder, unspecified; F41.9 Anxiety disorder, unspecified; I10 Essential (primary) hypertension; W22.8XXA Striking against or struck by other objects, initial encounter; Y92.149 Unspecified place in prison as the place of occurrence of the external cause
CPT/HCPCS: 70450; 80053; 80307; 84443; 85025; 93005; 99285; J7030